=== PATIENT | female | born 1970 | race African-American/Black ===

== ENCOUNTER 2017-05-22 13:58 | Inpatient (IN) | payer BC ==
[~2017-05-22] VITALS: Ht 185.4 cm; Wt 157.9 kg
[2017-05-22] MEDS ORDERED: BENZONATATE200 M1 (14:27)
[2017-05-22] MEDS ORDERED: ZOFRAN ODT4 MG (14:27)
[2017-05-22] MEDS ORDERED: METOPROLOL SUCC25 MG (14:27)
[2017-05-22] MEDS ORDERED: ATORVASTATIN CA40 MG (14:28)
[2017-05-22] MEDS ORDERED: OMEPRAZOLE40 MG (14:28)
[2017-05-22] MEDS ORDERED: ASPIR 8181 MG (14:28)
[2017-05-22] MEDS ORDERED: AMLODIPINE BESY10 MG (14:28)
[2017-05-22] MEDS ORDERED: FUROSEMIDE40 MG (14:28)
[2017-05-22] MEDS ORDERED: TUDORZA PRESS400 MCG (14:28)
[2017-05-22] MEDS ORDERED: FLONASE SENSIM9.9 ML (14:29)
[2017-05-29] MEDS ORDERED: BENZONATATE200 M1 PO (17:35)
[2017-05-29] MEDS ORDERED: LIPITOR40 MG PO (17:51)
[2017-05-29] MEDS ORDERED: ASPIR 8181 MG PO (17:51)
[2017-05-29] MEDS ORDERED: TOPROL XL25 M1 PO (17:51)
[2017-05-29] MEDS ORDERED: FLONASE16 GM NASAL (17:51)
[2017-05-29] MEDS ORDERED: PANTOPRAZOLE SO40 MG PO (17:51)
[2017-05-29] MEDS ORDERED: TUDORZA PRESS400 MCG PO (17:51)
[2017-05-29] MEDS ORDERED: ALBUTEROL1.25 MG/3 IH (17:59)
== END 2017-05-29 18:01 | disposition home or self-care (01) | DRG 190 ==
LOC: ER 13:58 → SEC-K 05-23 10:39 → SURH 05-23 17:01 → MEDI 05-23 17:10
PROC: 3E0F7GC Introduction of Other Therapeutic Substance into Respiratory Tract, Via Natural or Artificial Opening (ICD-10-PCS; principal; 2017-05-23)
PROC: 4A033R1 Measurement of Arterial Saturation, Peripheral, Percutaneous Approach (ICD-10-PCS; 2017-05-23)
PROC: B246ZZZ Ultrasonography of Right and Left Heart (ICD-10-PCS; 2017-05-23)
DX: J44.1 Chronic obstructive pulmonary disease with (acute) exacerbation (principal); I50.33 Acute on chronic diastolic (congestive) heart failure; J45.41 Moderate persistent asthma with (acute) exacerbation; B37.0 Candidal stomatitis; J44.0 Chronic obstructive pulmonary disease with (acute) lower respiratory infection; J20.9 Acute bronchitis, unspecified; R09.02 Hypoxemia; F17.210 Nicotine dependence, cigarettes, uncomplicated; I11.0 Hypertensive heart disease with heart failure